=== PATIENT | female | born 2000 | race Caucasian/White ===

== ENCOUNTER → 2021-04-17 12:18 | Outpatient (CLI) | payer MEDICAID, BC, SELFPAY ==
[2021-04-17 16:23] LABS: HIV - WCH Non-Reactive (Nonreactive); Hepatitis B Surface Antigen Non-Reactive (Nonreactive); Hepatitis C Antibody Non-Reactive (Nonreactive); Syphilis Antibodies Non-reactive
[2021-04-20 02:07] LABS: Chlamydia By Nucleic Acid AMP Positive (Negative)
[2021-04-20 07:45] LABS: Gonococcus By Nucleic Acid AMP Negative (Negative)
== END ==
PROVIDERS: PCP Pediatrics; Visit Provider Obstetrics & Gynecology
DX: Z11.3 Encounter for screening for infections with a predominantly sexual mode of transmission (principal)
CPT/HCPCS: 36415; 86703; 86780; 86803; 87340; 87491; 87591

== ENCOUNTER 2021-05-13 15:38 | Outpatient (CLI) | payer BC, MEDICAID, SELFPAY ==
[2021-05-15 22:06] LABS: Chlamydia By Nucleic Acid AMP Negative (Negative)
[2021-05-16 08:24] LABS: Gonococcus By Nucleic Acid AMP Negative (Negative)
== END 2021-05-13 23:59 | disposition short-term general hospital (02) ==
LOC: LABSPEC 15:42
PROVIDERS: PCP Pediatrics; Visit Provider Obstetrics & Gynecology
DX: Z11.3 Encounter for screening for infections with a predominantly sexual mode of transmission (principal)
CPT/HCPCS: 87491; 87591

== ENCOUNTER 2021-05-20 09:46 | Emergency (ER) | payer BC, MEDICAID, SELFPAY ==
[2021-05-20 09:46] VITALS: BP 142/101; PULSE 94; RESP 18; TEMP 36.4; O2SAT 97; BMI 20.7
--- NOTE | 2021-05-20 10:15 | EDS_ITS ---
HPI HPI - Female History of Present Illness Chief Complaint: Other, Pain/Inj Narrative Narrative: 20-year-old female presenting with left inguinal pain. Apparently this has been ongoing for the last 3 days. Patient states that the pain in her left inguinal area has increased over 3 days and she now has lymph nodes palpable in the left inguinal area.Patient does state that it is painful to walk due to her lymphadenopathy She admits to dysuria as well. Patient does state that she has nausea but is not vomiting. She admits to breast tenderness. She states it is possible she could be . Last menstrual period was May 03. Patient states that on 04/17/2021 she was diagnosed with chlamydia. She had been with her current partner for a couple of months and she stated that her sexual activity with him started a month prior to the onset of her vaginal discharge. She states that her boyfriend did not have any symptoms. She states they were both tested and treated for this with azithromycin. He still does not have any symptoms. She states she is not concerned that he is having sex with other partners. She is still having unprotected sex with him. She has not had no return of vaginal discharge. She does admit to pelvic cramping. Patient denies any fever, chills, body aches. She has not had any GI complaints other than nausea. PFSH PFSH Medical History no medical history Home Medications NK 05/20/21 [History Last Taken Unknown] naproxen [Naprosyn] 500 mg PO BID PRN #30 tab 05/20/21 [Rx Last Taken Unknown] ondansetron 4 mg PO Q8H PRN PRN #14 tab 05/20/21 [Rx Last Taken Unknown] Allergy/AdvReac Type Severity Reaction Status Date / Time No Known Allergies Allergy Verified 05/20/21 09:48 Surgical History no surgical history Social History Smoking Status: Never smoker ROS ROS ED Constitutional Constitutional ED: Denies chills or fever(s) Eyes Eyes: Denies blurry vision or diplopia ENT ENT ED: Denies rhinorrhea or sore throat Cardiovascular Cardiovascular: Denies chest pain or palpitations Respiratory/Chest Respiratory/Chest: Reports breast pain; Denies cough or dyspnea Gastrointestinal Gastrointestinal: Reports nausea and other Details: Pelvic cramping ; Denies constipation, diarrhea or vomiting Genitourinary Genitourinary ED: Reports dysuria and other Details: No vaginal discharge, rash, lesions ; Denies hematuria Musculoskeletal Musculoskeletal: Denies arthralgias or myalgias Integumentary Denies Abrasions or rash Neurologic Neurologic: Denies headache(s) or paresthesias Hematologic/Lymphatic Hematologic/Lymphatic: Reports other Details: Left inguinal lymphadenopathy EXAM Physical Exam Const Vital Signs: 05/20/21 09:46 05/20/21 09:52 05/20/21 12:28 Temperature 97.6 F L Temperature Source Temporal Pulse Rate 94 77 Respiratory Rate 18 16 Respiratory Effort Normal Non-Labored Blood Pressure 142/101 H 127/76 H Blood Pressure Mean 114 93 Pulse Ox 97 99 Oxygen Delivery Method Room Air Room Air 05/20/21 13:47 Temperature Temperature Source Pulse Rate 84 Respiratory Rate 16 Respiratory Effort Blood Pressure 135/89 H Blood Pressure Mean 104 Pulse Ox 100 Oxygen Delivery Method Room Air Positive well nourished General Appearance ED: NAD HEENT Reports moist mucous membranes Negative for trauma Eyes PERRL and EOMs intact bilaterally General Eye ED: Negative for pale conjunctiva or scleral icterus Neck no lymphadenopathy and supple Chest Wall inspection of chest normal Resp normal respiratory effort and clear to auscultation bilaterally Cardio regular rate and regular rhythm GI Palpation: soft and tender other (Pelvic/suprapubic) external exam normal External Female Exam: inguinal lymphadenopathy Back/Spine no CVA tenderness Neuro oriented x3 and CN's II-XII intact bilaterally Sensorium / Orientation: alert Psych mental status grossly normal Skin no rashes or lesions noted and no wounds MDM MDM MDM Narrative Medical decision making narrative: Patient presenting with pelvic pain lymphadenopathy in the left inguinal region. This is palpable and is tender to palpation there is no rashes or lesions in this area. Patient is not having any vaginal complaints. She does complain of dysuria. hCG is negative. Urinalysis showed some calcium oxalate crystals and small amount of blood in urine. I did a plain blood work and her CBC CMP are unremarkable. GC and Chlamydia were negative. At this point I went to speak with the patient at this wound she told me that she has a history of kidney stones. I obtained a CT of the abdomen pelvis without contrast which did not identify any kidney stones but did show a complex 5 x 4.7 cm cyst on the left ovary and recommended ultrasound. This was performed and the ultrasound read of this is 3.9 x 3.9 x 3.1 complex ovarian cyst without torsion. Good flow was noted. Patient given a dose of Toradol for pain. She will be discharged home with Naprosyn. She has follow-up with Dr. 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 Patient can return precautions. Impression: 1. Left inguinal lymphadenopathy 2. Left-sided ovarian cyst 3. Nausea Lab Data Labs: Laboratory Results - last 24 hr 05/20/21 05/20/21 05/20/21 10:15 10:15 10:15 WBC 6.8 RBC 4.39 Hgb 12.6 Hct 38.7 MCV 88.2 MCH 28.7 MCHC 32.6 RDW Std Deviation 42.3 RDW Coeff of Martin 13.0 Plt Count 233 MPV 10.9 Immature Gran % (Auto) 0.300 Neut % (Auto) 62.9 Lymph % (Auto) 20.8 [place] % (Auto) 11.7 H Eos % (Auto) 3.7 Baso % (Auto) 0.6 Absolute Neuts (auto) 4.3 Absolute Lymphs (auto) 1.41 Nucleated RBC % 0 Sodium 140 Potassium 3.3 L Chloride 105 Carbon Dioxide 29.0 Anion Gap 6 BUN 12 Creatinine 0.81 Estim Creat Clear Calc 99.16 Est GFR (MDRD) Af Amer 115 Est GFR (MDRD) Non-Af 95 BUN/Creatinine Ratio 14.8 Glucose 91 Calcium 8.8 Total Bilirubin 0.40 AST 14 L ALT 26 Alkaline Phosphatase 86 Total Protein 7.7 Albumin 3.7 Globulin 4.0 Albumin/Globulin Ratio 0.9 Serum , Qual NEGATIVE Urine Color Urine Clarity Urine pH Ur Specific [place] Urine Protein Urine Glucose (UA) Urine Ketones Urine Occult Blood Urine Nitrite Urine Bilirubin Urine Urobilinogen Ur Leukocyte Esterase Urine RBC Urine WBC Ur Squamous Epith Cells Calcium Oxalate Crystal Urine Bacteria Urine Mucus Urine Test Chlam trachomat DNA PCR N.gonorrhoeae DNA (PCR) 05/20/21 05/20/21 05/20/21 10:15 10:22 10:22 WBC RBC Hgb Hct MCV MCH MCHC RDW Std Deviation RDW Coeff of Martin Plt Count MPV Immature Gran % (Auto) Neut % (Auto) Lymph % (Auto) [place] % (Auto) Eos % (Auto) Baso % (Auto) Absolute Neuts (auto) Absolute Lymphs (auto) Nucleated RBC % Sodium Potassium Chloride Carbon Dioxide Anion Gap BUN Creatinine Estim Creat Clear Calc Est GFR (MDRD) Af Amer Est GFR (MDRD) Non-Af BUN/Creatinine Ratio Glucose Calcium Total Bilirubin AST ALT Alkaline Phosphatase Total Protein Albumin Globulin Albumin/Globulin Ratio Serum , Qual Urine Color Yellow Urine Clarity Sl. Cloudy Urine pH 5.0 Ur Specific [place] 1.025 Urine Protein 15 H Urine Glucose (UA) Normal Urine Ketones 5 H Urine Occult Blood 10 H Urine Nitrite Negative Urine Bilirubin Negative Urine Urobilinogen Normal Ur Leukocyte Esterase 500 H Urine RBC 0 SEEN Urine WBC 5-10 SEEN Ur Squamous Epith Cells 0-5 SEEN Calcium Oxalate Crystal 1+ Urine Bacteria 0 SEEN Urine Mucus 0 SEEN Urine Test Negative Chlam trachomat DNA PCR Negative N.gonorrhoeae DNA (PCR) Negative Radiography Diagnostic Testing: Clinical Impression(s) from Imaging Studies Abdomen/Pelvis CT 05/20/21 13:45 IMPRESSION: 5 cm x 4.7 cm complex solid and cystic mass in the left adnexa. Small amount of fluid is seen in the pelvis. Correlation with ultrasound is recommended. Electronically Signed: Roby Dial MD at 14:05 EST , Service support , Transvaginal US 05/20/21 14:15 IMPRESSION: 3.8 cm x 3.9 cm x 3.1 cm complex left ovarian cyst. Follow-up is recommended. Free fluid in the pelvis. No evidence of ovarian torsion. Electronically Signed: Roby Dial MD at 15:18 EST , Service support , Discharge Plan Triage Chief Complaint: Other, Pain/Inj ED Provider: Spencer Cardozo Dx/Rx/DC Orders Prescriptions: New naproxen [Naprosyn] 500 mg tablet 500 mg PO BID PRN (Reason: pain) Qty: 30 RF: 0 ondansetron 4 mg tablet,disintegrating 4 mg PO Q8H PRN PRN (Reason: Nausea) Qty: 14 RF: 0 No Action NK RF: 0 Primary Care Provider: Adarsh Gonzalez Referrals: Adarsh Gonzalez DO [Primary Care Provider] - Carlos Cochran MD [STAFF PHYSICIAN] - As soon as possible Disposition Disposition: Home, Self Care
[2021-05-20 10:32] LABS: Absolute Lymphocyte Count 1.41 X10^3/uL (0.83-4.51); Absolute Neutrophil Count 4.3 X10^3/uL (2.0-7.7); Basophil# 0.04 X10^3/uL; Basophil% 0.6 % (0-1); Eosinophil# 0.25 X10^3/uL; Eosinophils% 3.7 % (0-5); Hematocrit 38.7 % (37-47); Hemoglobin 12.6 g/dL (12.0-15.0); Lymphocyte # 1.41 X10^3/ul (0.83-4.51); Lymphocyte % 20.8 % (19-41); Mean Corp Hgb Conc 32.6 g/dL (32-36); Mean Corpuscular Hgb 28.7 pg (27.0-32.0); Mean Corpuscular Volume 88.2 fL (81-99); Mean Platelet Vol. 10.9 fl (6.2-12.0); Monocyte# 0.79 X10^3/uL; Monocyte% 11.7 % (0-10); NRBC Flagged by Analyzer 0 % (0-5); Neutrophil # 4.27 X10^3/uL (2.7-7.7); Neutrophil % 62.9 % (47-70); Platelet Count 233 K/mm3 (150-450); RBC Distribution Width SD 42.3 fl (35.1-43.9); Red Blood Count 4.39 M/mm3 (4.2-5.4); White Blood Count 6.8 K/mm3 (4.4-11.0)
[2021-05-20 10:42] LABS: Internal QC Validated? YES +Cl - CLEAR BKGD
[2021-05-20 10:43] LABS: Pregnancy, Urine Negative Negative
[2021-05-20 10:50] LABS: ALB/GLOB Ratio 0.9 RATIO (0.9-2.4); AST(SGOT) 14 U/L (15-37); Alanine Aminotransfer ALT/SGPT 26 U/L (13-56); Albumin, Serum 3.7 g/dL (3.2-5.0); Alkaline Phosphatase 86 U/L (45-117); Anion Gap 6 (5-15); BUN 12 mg/dL (7-18); BUN/Creat Ratio 14.8 RATIO (10-20); Calcium,Total 8.8 mg/dL (8.5-10.1); Chloride 105 mmol/L (98-107); Creatinine, Serum 0.81 mg/dL (0.55-1.02); EST Glomerular Filtration Rate 95 mL/min (>60); Est Glom Filt Rate - Afr Amer 115 mL/min (>60); Estimated Creatinine Clearance 99.16 ml/min; Glucose 91 mg/dL (74-106); Potassium 3.3 mmol/L (3.5-5.1); Protein, Total 7.7 g/dL (6.4-8.2); Sodium Level 140 mmol/L (136-145)
[2021-05-20 10:59] LABS: Internal QC Validated? YES +Cl - CLEAR BKGD; Pregnancy, Serum, hCG Quali. NEGATIVE Negative
[2021-05-20 12:02] LABS: Bacteria 0 SEEN /hpf (None Seen); Mucous, Urine 0 SEEN /hpf (<or=2+); Red Blood Cells-Urine 0 SEEN /hpf (0-5)
[2021-05-20 12:05] LABS: Color, Urine Yellow (Yellow); Glucose, Dipstick Normal (Normal); Ketone-Dipstick 5 mg/dl (Negative); Leukocyte Esterase-Dipstick 500 /ul (Negative); Nitrite-Dipstick Negative (Negative); Occult Blood-Urine 10 /ul (Negative); Protein-Dipstick 15 mg/dl (Negative); Specific Gravity, Urine 1.025 (1.002-1.030); Urine Bilirubin Dipstick Negative (Negative); Urine Clarity Sl. Cloudy (Clear); Urine Urobilinogen Normal (Normal)
[2021-05-20 12:28] VITALS: BP 127/76; PULSE 77; RESP 16; O2SAT 99
[2021-05-20 12:40] LABS: Chlamydia Trachomatis by PCR Negative (Negative); Neisserai gonorrhoeae by PCR Negative (Negative); Probe Check PASS; Sample Adequacy Control PASS; Specimen Processing Control PASS
[2021-05-20 12:57] LABS: Calcium Oxalate Crystals Ur 1+ /hpf (<or=2+); Squamous Epithelial Cells - UA 0-5 SEEN /hpf (5-10); White Blood Cells 5-10 SEEN /hpf (0-5)
--- NOTE | 2021-05-20 13:45 | CT_ITS ---
STUDY: CT ABDOMEN AND PELVIS WITH CONTRAST REASON FOR EXAM: Female, 20 years old. Left flank pain RADIATION DOSAGE (If Supplied By Facility): CTDIvol = ( 10.54 ) mGy, DLP = ( 330.61 ) mGycm TECHNIQUE: Transaxial images were obtained from the dome of the diaphragm to the symphysis pubis without oral contrast. IV 100mL Isovue-300 was administered. Sagittal and coronal images were reconstructed. Individualized dose optimization techniques were used for this CT. COMPARISON: None. FINDINGS: The visualized lung bases are unremarkable. The visualized portions of the heart are within normal limits. Normal liver. Normal gallbladder and extrahepatic biliary system. Normal spleen. Normal pancreas. Normal bilateral adrenal glands. Normal right kidney. Normal left kidney. Normal visualized stomach. Normal small intestine. Normal colon. The appendix is visualized and appears normal. Normal abdominal aorta. Normal inferior vena cava. Normal retroperitoneum. Normal urinary bladder. There is a 5 cm x 4.7 cm complex cystic mass in the left adnexa. Small amount of free fluid is seen in the pelvis. Follicles are seen in the right ovary. Normal abdominal wall. Normal osseous structures. CT/Abdomen/Pelvis W IV Cont ONLY IMPRESSION: 5 cm x 4.7 cm complex solid and cystic mass in the left adnexa. Small amount of fluid is seen in the pelvis. Correlation with ultrasound is recommended. Electronically Signed: Roby Dial MD at 14:05 EST , Service support ,
[2021-05-20 13:47] VITALS: BP 135/89; PULSE 84; RESP 16; O2SAT 100
--- NOTE | 2021-05-20 14:15 | US_ITS ---
STUDY: ULTRASOUND OF THE FEMALE PELVIS - COMPLETE REASON FOR EXAM: Female, 20 years old. Pelvic pain LMP: 04/29/2021 TECHNIQUE: Transvaginal TECHNICAL QUALITY: Adequate. COMPARISON: Comparison is made with prior CT scan of the abdomen and pelvis done earlier today. FINDINGS: The uterus is anteverted and is in a midline position. The uterus measures 8 cm x 4.4 cm x 3.5 cm. Normal uterine cervix. The endometrium measures 8.2 mm in thickness, and is hyperechoic. There is no demonstrated endometrial mass. There is no demonstrated myometrial mass. I.U.D. - The patient does not have an I.U.D. The right ovary is visualized. The right ovary measures 3.1 cm x 3.1 cm x 1.7 cm. There is no right ovarian cyst or ovarian mass. There is no visualized right adnexal mass or complex lesion. There is normal arterial and normal venous vascularity. The left ovary is visualized. The left ovary measures 4.7 cm x 4.3 cm x 4 cm. There is a 3.8 cm x 3.9 cm x 3.1 cm complex cyst in the left ovary. There is no visualized left adnexal mass or complex lesion. There is normal arterial and normal venous vascularity. Small amount of free fluid is seen in the pelvis. US/Transvaginal Non- IMPRESSION: 3.8 cm x 3.9 cm x 3.1 cm complex left ovarian cyst. Follow-up is recommended. Free fluid in the pelvis. No evidence of ovarian torsion. Electronically Signed: Roby Dial MD at 15:18 EST , Service support ,
[2021-05-20] MEDS: Ketorolac 15 MG/ML Vial IV (15:41)
[2021-05-20 15:45] VITALS: BP 125/80; PULSE 70; RESP 16; TEMP 36.8; O2SAT 99
== END 2021-05-20 15:47 | disposition home or self-care (01) ==
PROVIDERS: Emergency Provider Student in an Organized Health Care Education/Training Program; PCP Pediatrics; Visit Provider Student in an Organized Health Care Education/Training Program
DX: R59.0 Localized enlarged lymph nodes (principal); N83.202 Unspecified ovarian cyst, left side; R11.0 Nausea; R31.9 Hematuria, unspecified
CPT/HCPCS: 74177; 76830; 80053; 81001; 81025; 84703; 85025; 87491; 87591; 93976; 96374; 99283; Q9967; A4216

== ENCOUNTER → 2021-09-23 | Outpatient (CLI) | payer BC, MEDICAID, SELFPAY ==
[2021-09-25 21:08] LABS: Chlamydia By Nucleic Acid AMP Negative (Negative)
[2021-09-25 21:44] LABS: Gonococcus By Nucleic Acid AMP Negative (Negative)
== END | disposition home or self-care (01) ==
LOC: LABSPEC 14:15
PROVIDERS: PCP Pediatrics; Visit Provider Obstetrics & Gynecology
DX: Z11.3 Encounter for screening for infections with a predominantly sexual mode of transmission (principal)
CPT/HCPCS: 87491; 87591

== ENCOUNTER → 2021-10-07 | Outpatient (CLI) | payer BC, MEDICAID, SELFPAY ==
[2021-10-07 13:41] LABS: Basophil# 0.04 X10^3/uL; Basophil% 0.4 % (0-1); Eosinophil# 0.15 X10^3/uL; Eosinophils% 1.5 % (0-5); Hematocrit 36.5 % (37-47); Hemoglobin 11.8 g/dL (12.0-15.0); Lymphocyte % 22.4 % (19-41); Mean Corp Hgb Conc 32.3 g/dL (32-36); Mean Corpuscular Hgb 28.1 pg (27.0-32.0); Mean Corpuscular Volume 86.9 fL (81-99); Mean Platelet Vol. 11.7 fl (6.2-12.0); Monocyte# 0.73 X10^3/uL; Monocyte% 7.1 % (0-10); NRBC Flagged by Analyzer 0 % (0-5); Neutrophil # 7.02 X10^3/uL (2.7-7.7); Neutrophil % 68.2 % (47-70); Platelet Count 301 K/mm3 (150-450); RBC Distribution Width CV 14.1 % (11.6-14.6); RBC Distribution Width SD 44.7 fl (35.1-43.9); White Blood Count 10.3 K/mm3 (4.4-11.0)
[2021-10-08 09:33] LABS: HIV - WCH Non-Reactive (Nonreactive); Hepatitis B Surface Antigen Non-Reactive (Nonreactive); Hepatitis C Antibody Non-Reactive (Nonreactive); Rubella IgG Non-Reactive (Nonreactive); Syphilis Antibodies Non-reactive
[2021-10-14 11:26] LABS: Chlamydia By Nucleic Acid AMP Positive (Negative)
[2021-10-14 18:06] LABS: Gonococcus By Nucleic Acid AMP Negative (Negative)
== END | disposition home or self-care (01) ==
LOC: WOBLAB 11:20
PROVIDERS: PCP Pediatrics; Visit Provider Obstetrics & Gynecology
DX: Z34.81 Encounter for supervision of other normal pregnancy, first trimester (principal)
CPT/HCPCS: 36415; 85025; 86703; 86762; 86780; 86803; 87077; 87086; 87088; 87186; 87340; 87491; 87591

== ENCOUNTER → 2021-10-24 | Outpatient (CLI) | payer BC, MEDICAID, SELFPAY | END | disposition home or self-care (01) | LOC: LABSPEC 11:36 | PROVIDERS: PCP Pediatrics; Visit Provider Obstetrics & Gynecology | DX: R30.0 Dysuria (principal) | CPT/HCPCS: 87086; 87088 ==

== ENCOUNTER → 2021-11-15 | Outpatient (CLI) | payer BC, MEDICAID, SELFPAY ==
[2021-11-18 20:07] LABS: Chlamydia By Nucleic Acid AMP Negative (Negative)
[2021-11-19 13:52] LABS: Gonococcus By Nucleic Acid AMP Negative (Negative)
== END | disposition home or self-care (01) ==
LOC: LABSPEC 08:45
PROVIDERS: PCP Pediatrics; Visit Provider Obstetrics & Gynecology
DX: A74.9 Chlamydial infection, unspecified (principal)
CPT/HCPCS: 87491; 87591

== ENCOUNTER 2022-01-30 17:25 | Outpatient (CLI) | payer BC, MEDICAID, SELFPAY ==
[2022-01-30 17:35] VITALS: BP 122/70; PULSE 93; PULSE 96; TEMP 36.9; O2SAT 100
[2022-01-30 17:48] VITALS: BMI 22.3
--- NOTE | 2022-01-30 18:17 | OB.TRI.HP_ITS ---
HPI - General General Date of Admission: 01/30/22 HPI Narrative CHELSIE ORTEGA, is a 21 F who presents with vaginal bleeding at home [facility] Medical History no medical history Home Medications [id number] 1 mg tablet 1 tab PO DAILY 01/30/22 [History Last Taken 01/27/22 08:00] Allergy/AdvReac Type Severity Reaction Status Date / Time No Known Allergies Allergy Verified 01/30/22 17:50 Surgical History no surgical history Social History Smoking Status: Never smoker Physical Exam Const alert, oriented x3, no apparent distress, average body habitus, no limitations and healthy appearing HEENT normocephalic Head and Scalp: atraumatic Eyes PERRL Neck full ROM Resp normal respiratory effort and normal air movement GI GI Narrative: Soft, nontender, gravid. Bedside ultrasound with placenta fundal, JASON subjectively within normal limits, no pathology noted. Extremity normal to inspection and full ROM Neuro oriented x3 and moves all extremities Psych mental status grossly normal, thought process normal, cooperative and affect normal Assessment & Plan (1) : PLAN: Patient seen and examined. Cervical exam by nursing closed thick and high. No signs of bleeding while in triage. heart tones reassuring. Abdomen soft. Bedside ultrasound reassuring. Okay to discharge home, precautions given. To follow-up in office
--- NOTE | 2022-01-30 18:18 | NURSING ---
Bedside ultrasound complete by Jos Cochran. BHAKTI. Miriam to d/c.
[2022-01-30 20:07] LABS: Chlamydia Trachomatis by PCR Negative (Negative); Neisserai gonorrhoeae by PCR Negative (Negative); Probe Check PASS; Sample Adequacy Control PASS; Specimen Processing Control PASS
== END 2022-01-30 18:29 | disposition home or self-care (01) ==
LOC: WPOUT 17:28 → WP 17:29
PROVIDERS: PCP Pediatrics; Referring Provider Obstetrics & Gynecology; Visit Provider Obstetrics & Gynecology
DX: O46.90 Antepartum hemorrhage, unspecified, unspecified trimester (principal)
CPT/HCPCS: 59050; 76815; 87086; 87088; 87491; 87591; 99218; G0378

== ENCOUNTER → 2022-03-14 | Outpatient (CLI) | payer MEDICAID, SELFPAY ==
[2022-03-14 11:42] LABS: Absolute Lymphocyte Count 1.56 X10^3/uL (0.83-4.51); Absolute Neutrophil Count 9.2 X10^3/uL (2.0-7.7); Basophil# 0.04 X10^3/uL; Basophil% 0.3 % (0-1); Eosinophil# 0.06 X10^3/uL; Eosinophils% 0.5 % (0-5); Hematocrit 32.9 % (37-47); Hemoglobin 10.8 g/dL (12.0-15.0); Lymphocyte # 1.56 X10^3/ul (0.83-4.51); Lymphocyte % 13.3 % (19-41); Mean Corp Hgb Conc 32.8 g/dL (32-36); Mean Corpuscular Hgb 29.6 pg (27.0-32.0); Mean Corpuscular Volume 90.1 fL (81-99); Monocyte# 0.75 X10^3/uL; Monocyte% 6.4 % (0-10); NRBC Flagged by Analyzer 0 % (0-5); Neutrophil # 9.23 X10^3/uL (2.7-7.7); Neutrophil % 78.9 % (47-70); Platelet Count 207 K/mm3 (150-450); RBC Distribution Width SD 42.6 fl (35.1-43.9); Red Blood Count 3.65 M/mm3 (4.2-5.4); White Blood Count 11.7 K/mm3 (4.4-11.0)
[2022-03-14 12:12] LABS: Glucose Challenge Gest 1H 50g 94 mg/dL (70-140)
== END | disposition home or self-care (01) ==
LOC: WOBLAB 11:07
PROVIDERS: PCP Pediatrics; Visit Provider Obstetrics & Gynecology
DX: Z34.82 Encounter for supervision of other normal pregnancy, second trimester (principal)
CPT/HCPCS: 36415; 82950; 85025; 86850

== ENCOUNTER → 2022-04-23 | Outpatient (CLI) | payer MEDICAID, SELFPAY ==
[2022-04-23 14:56] LABS: Absolute Lymphocyte Count 1.89 X10^3/uL (0.83-4.51); Basophil# 0.04 X10^3/uL; Basophil% 0.4 % (0-1); Eosinophil# 0.05 X10^3/uL; Eosinophils% 0.5 % (0-5); Hematocrit 30.9 % (37-47); Hemoglobin 10.2 g/dL (12.0-15.0); Lymphocyte # 1.89 X10^3/ul (0.83-4.51); Lymphocyte % 17.9 % (19-41); Mean Corpuscular Volume 87.8 fL (81-99); Mean Platelet Vol. 13.9 fl (6.2-12.0); Monocyte% 4.7 % (0-10); NRBC Flagged by Analyzer 0 % (0-5); Neutrophil # 7.98 X10^3/uL (2.7-7.7); Neutrophil % 75.8 % (47-70); Platelet Count 166 K/mm3 (150-450); RBC Distribution Width CV 12.8 % (11.6-14.6); RBC Distribution Width SD 40.5 fl (35.1-43.9); Red Blood Count 3.52 M/mm3 (4.2-5.4); White Blood Count 10.5 K/mm3 (4.4-11.0)
[2022-04-23 15:28] LABS: Protein, Urine (Random) 20.8 mg/dL (<11.9); Protein:Creat Ratio 131 mg/g CRE (0-200)
[2022-04-23 15:29] LABS: ALB/GLOB Ratio 0.7 RATIO (0.9-2.4); AST(SGOT) 49 U/L (15-37); Alanine Aminotransfer ALT/SGPT 65 U/L (13-56); Albumin, Serum 2.7 g/dL (3.2-5.0); Alkaline Phosphatase 204 U/L (45-117); Anion Gap 5 (5-15); BUN 8 mg/dL (7-18); BUN/Creat Ratio 12.4 RATIO (10-20); Calcium,Total 8.6 mg/dL (8.5-10.1); Chloride 104 mmol/L (98-107); Creatinine, Serum 0.64 mg/dL (0.55-1.02); EST Glomerular Filtration Rate 123 mL/min (>60); Est Glom Filt Rate - Afr Amer 149 mL/min (>60); Globulin 3.9 g/dL (2.2-4.2); Glucose 99 mg/dL (74-106); LDH 148 U/L (84-246); Potassium 3.6 mmol/L (3.5-5.1); Protein, Total 6.6 g/dL (6.4-8.2); Sodium Level 137 mmol/L (136-145)
== END | disposition home or self-care (01) ==
LOC: WOBLAB 14:07
PROVIDERS: PCP Pediatrics; Visit Provider Obstetrics & Gynecology
DX: O13.3 Gestational [pregnancy-induced] hypertension without significant proteinuria, third trimester (principal); Z3A.00 Weeks of gestation of pregnancy not specified
CPT/HCPCS: 36415; 80053; 82570; 83615; 84156; 85025; 87086; 87088

== ENCOUNTER → 2022-04-30 | Outpatient (CLI) | payer MEDICAID, SELFPAY ==
[2022-04-30 11:58] LABS: Absolute Lymphocyte Count 1.92 X10^3/uL (0.83-4.51); Absolute Neutrophil Count 8.1 X10^3/uL (2.0-7.7); Basophil# 0.05 X10^3/uL; Basophil% 0.5 % (0-1); Eosinophil# 0.06 X10^3/uL; Eosinophils% 0.6 % (0-5); Hematocrit 31.4 % (37-47); Hemoglobin 10.6 g/dL (12.0-15.0); Lymphocyte # 1.92 X10^3/ul (0.83-4.51); Lymphocyte % 17.7 % (19-41); Mean Corp Hgb Conc 33.8 g/dL (32-36); Mean Corpuscular Hgb 29.8 pg (27.0-32.0); Mean Corpuscular Volume 88.2 fL (81-99); Mean Platelet Vol. 13.5 fl (6.2-12.0); Monocyte# 0.61 X10^3/uL; Monocyte% 5.6 % (0-10); NRBC Flagged by Analyzer 0 % (0-5); Neutrophil # 8.14 X10^3/uL (2.7-7.7); Neutrophil % 75.2 % (47-70); POSITIVE MORPHOLOGY YES; Platelet Count 176 K/mm3 (150-450); RBC Distribution Width CV 12.7 % (11.6-14.6); RBC Distribution Width SD 40.8 fl (35.1-43.9); Red Blood Count 3.56 M/mm3 (4.2-5.4); White Blood Count 10.8 K/mm3 (4.4-11.0)
[2022-04-30 12:03] LABS: Protein:Creat Ratio 113 mg/g CRE (0-200)
[2022-04-30 12:24] LABS: ALB/GLOB Ratio 0.6 RATIO (0.9-2.4); AST(SGOT) 38 U/L (15-37); Alanine Aminotransfer ALT/SGPT 58 U/L (13-56); Albumin, Serum 2.7 g/dL (3.2-5.0); Alkaline Phosphatase 231 U/L (45-117); Anion Gap 8 (5-15); BUN 8 mg/dL (7-18); Chloride 105 mmol/L (98-107); Creatinine, Serum 0.66 mg/dL (0.55-1.02); EST Glomerular Filtration Rate 119 mL/min (>60); Est Glom Filt Rate - Afr Amer 144 mL/min (>60); Globulin 4.2 g/dL (2.2-4.2); Glucose 84 mg/dL (74-106); LDH 158 U/L (84-246); Potassium 3.9 mmol/L (3.5-5.1); Protein, Total 6.9 g/dL (6.4-8.2); Sodium Level 138 mmol/L (136-145)
[2022-04-30 12:28] LABS: Differential Indicated SCAN CRITERIA MET
[2022-04-30 12:31] LABS: Differential Comment SCANNED
[2022-04-30 12:32] LABS: Platelet Estimate ADEQUATE (ADEQ)
[2022-04-30 12:33] LABS: Reactive Lymphocyte 1+
== END | disposition home or self-care (01) ==
LOC: WOBLAB 11:43
PROVIDERS: PCP Pediatrics; Visit Provider Obstetrics & Gynecology
DX: Z34.83 Encounter for supervision of other normal pregnancy, third trimester (principal)
CPT/HCPCS: 36415; 80053; 82570; 83615; 84156; 85025; 87086; 87088

== ENCOUNTER → 2022-05-06 | Outpatient (CLI) | payer MEDICAID, SELFPAY ==
[2022-05-06 13:17] LABS: Hematocrit 33.3 % (37-47); Hemoglobin 10.5 g/dL (12.0-15.0); Mean Corp Hgb Conc 31.5 g/dL (32-36); Mean Corpuscular Volume 88.8 fL (81-99); Mean Platelet Vol. 14.6 fl (6.2-12.0); Platelet Count 162 K/mm3 (150-450); RBC Distribution Width CV 12.8 % (11.6-14.6); RBC Distribution Width SD 41.5 fl (35.1-43.9); Red Blood Count 3.75 M/mm3 (4.2-5.4); White Blood Count 12.1 K/mm3 (4.4-11.0)
[2022-05-06 13:42] LABS: ALB/GLOB Ratio 0.7 RATIO (0.9-2.4); AST(SGOT) 26 U/L (15-37); Alanine Aminotransfer ALT/SGPT 38 U/L (13-56); Albumin, Serum 2.8 g/dL (3.2-5.0); Alkaline Phosphatase 247 U/L (45-117); Anion Gap 7 (5-15); BUN 10 mg/dL (7-18); BUN/Creat Ratio 14.1 RATIO (10-20); Calcium,Total 8.7 mg/dL (8.5-10.1); Chloride 105 mmol/L (98-107); Creatinine, Serum 0.71 mg/dL (0.55-1.02); EST Glomerular Filtration Rate 111 mL/min (>60); Est Glom Filt Rate - Afr Amer 134 mL/min (>60); Globulin 4.3 g/dL (2.2-4.2); Glucose 79 mg/dL (74-106); LDH 170 U/L (84-246); Potassium 3.7 mmol/L (3.5-5.1); Protein, Total 7.1 g/dL (6.4-8.2); Sodium Level 137 mmol/L (136-145)
[2022-05-06 14:01] LABS: Syphilis Antibodies Non-reactive
== END | disposition home or self-care (01) ==
LOC: WOBLAB 12:08
PROVIDERS: PCP Pediatrics; Visit Provider Obstetrics & Gynecology
DX: Z34.83 Encounter for supervision of other normal pregnancy, third trimester (principal); Z36.85 Encounter for antenatal screening for Streptococcus B
CPT/HCPCS: 36415; 80053; 83615; 85027; 86780; 87081

== ENCOUNTER 2022-05-10 05:14 | Inpatient (IN) | payer BC, MEDICAID, SELFPAY ==
[2022-05-10 05:27] VITALS: BMI 24.6
[2022-05-10 05:30] VITALS: BP 148/90; PULSE 88; RESP 19; TEMP 36.6; O2SAT 99
[2022-05-10] MEDS: Lactated Ringers 1,000 ML 999 ML IV (05:35)
[2022-05-10] MEDS: Acetaminophen 500 MG Tablet 1000 MG PO ×2 (05:50→23:38)
[2022-05-10 05:53] LABS: Absolute Lymphocyte Count 2.31 X10^3/uL (0.83-4.51); Absolute Neutrophil Count 8.7 X10^3/uL (2.0-7.7); Basophil# 0.04 X10^3/uL; Basophil% 0.3 % (0-1); Eosinophil# 0.16 X10^3/uL; Eosinophils% 1.3 % (0-5); Hemoglobin 10.2 g/dL (12.0-15.0); Lymphocyte # 2.31 X10^3/ul (0.83-4.51); Lymphocyte % 19.1 % (19-41); Mean Corp Hgb Conc 32.9 g/dL (32-36); Mean Corpuscular Hgb 28.7 pg (27.0-32.0); Mean Corpuscular Volume 87.1 fL (81-99); Mean Platelet Vol. 14.3 fl (6.2-12.0); Monocyte# 0.78 X10^3/uL; Monocyte% 6.4 % (0-10); NRBC Flagged by Analyzer 0 % (0-5); Neutrophil # 8.71 X10^3/uL (2.7-7.7); Neutrophil % 72.1 % (47-70); Platelet Count 153 K/mm3 (150-450); RBC Distribution Width CV 12.7 % (11.6-14.6); RBC Distribution Width SD 39.9 fl (35.1-43.9); Red Blood Count 3.56 M/mm3 (4.2-5.4); White Blood Count 12.1 K/mm3 (4.4-11.0)
[2022-05-10] MEDS: Lactated Ringers 1,000 ML 150 ML IV (06:40)
[2022-05-10 07:04] LABS: Amphetamine Urine VISTA NEGATIVE (<1000 ng/mL); Barbiturate Urine VISTA NEGATIVE (< 200 ng/mL); Benzodiazepine Urine VISTA NEGATIVE (< 200 ng/mL); Cocaine Urine VISTA NEGATIVE (< 300 ng/mL); Ecstacy Urine VISTA NEGATIVE (< 500 ng/mL); Methadone Urine VISTA NEGATIVE (< 300 ng/mL); PCP Urine VISTA NEGATIVE (< 25 ng/mL); THC Urine VISTA NEGATIVE (< 50 ng/mL); Vista UDS pH Range 5
--- NOTE | 2022-05-10 07:23 | PCM.HP.BLA ---
History and Physical Date of Admission: 05/10/22 Chief complaint: Primary section for breech History present illness: 21-year-old G2, P0 at 37 weeks and 0 days with TARUN 05/31/2022 arrives for primary section for breech with preeclampsia without severe features. Denies headache, visual change, chest pain, shortness of breath, nausea vomit, right upper quadrant pain. Patient states good movement. is complicated by preeclampsia without severe features, Rh-, GBS positive Obstetric history: G1: SAB G2: Current Past medical history: Anxiety/depression Medications: Sertraline Past surgical history: [place] teeth extraction Allergies: No known drug allergies Family history: Denies history DVT or PE Social history: Denies smoking, alcohol use, drug use Review of systems: Besides above pertinent positives a full review of systems was performed and found to be negative Physical exam: Vitals: Blood pressure 148/90 pulse 88 respiratory rate 19 temperature 97.8 ?F SPO2 99% on room air General: Normal-appearing no acute distress HEENT: Normocephalic/atraumatic no cervical adenopathy Cardiac/respiratory: No use of accessory muscles, nonlabored breathing Abdomen: Soft, nontender, gravid Extremities: No peripheral edema normal peripheral pulses Psych: Normal affect normal demeanor nonpressured speech Labs: White blood cell count 12.1 hemoglobin 12.2 hematocrit 31.0% platelets 153 urine drug screen negative. Blood type O- antibody negative Assessment plan: 21-year-old G2, P0 at 37 weeks and 0 days for primary section for breech with preeclampsia without severe features Admit labor and delivery CEFM GBS positive: Ancef with section Preeclampsia without severe features: We will continue to monitor blood pressures, patient asymptomatic. We will continue to monitor Anesthesia see
[2022-05-10] MEDS: 0.9% Saline Lock 10 ML Syringe IV (11:15)
[2022-05-10] MEDS: Dextrose 5%-Lactated Ringers 1,000 ML 100 ML IV (18:01)
[2022-05-10] MEDS: Ondansetron 4 MG/2 ML Vial IV (18:02)
--- NOTE | 2022-05-10 20:30 | PN.OBGYN_ITS ---
Subjective Subjective Comfortable resting in bed Objective Data Objective Data Vital Signs: Vital Signs Temp Pulse Resp BP Pulse Ox O2 Del Method 97.8 F 88 19 H 148/90 H 99 Room Air 05/10/22 05:30 05/10/22 05:30 05/10/22 05:30 05/10/22 05:30 05/10/22 05:30 05/10/22 05:30 Oxygen Delivery Method Room Air Weight: 152 lb 12.485 oz Body Mass Index (BMI) 24.6 Intake & Output: Intake and Output for Last 24 Hours 05/08/22 05/09/22 05/10/22 23:59 23:59 23:59 Intake Total 1000 / 1000 Balance 1000 / 1000 Lab / Micro Data Result Diagrams: 05/10/22 05:35 Labs: Laboratory Results - last 24 hr 05/10/22 05:35: WBC 12.1 H, RBC 3.56 L, Hgb 10.2 L, Hct 31.0 L, MCV 87.1, MCH 28.7, MCHC 32.9, RDW Std Deviation 39.9, RDW Coeff of Martin 12.7, Plt Count 153, MPV 14.3 H, Immature Gran % (Auto) 0.800, Neut % (Auto) 72.1 H, Lymph % (Auto) 19.1, [place] % (Auto) 6.4, Eos % (Auto) 1.3, Baso % (Auto) 0.3, Absolute Neuts (auto) 8.7 H, Absolute Lymphs (auto) 2.31, Nucleated RBC % 0 05/10/22 05:35: Blood Type O NEGATIVE, Antibody Screen TNP 05/10/22 05:35: Antibody Screen NEGATIVE 05/10/22 06:10: Urine Opiates Screen NEGATIVE, Urine Methadone Screen NEGATIVE, Ur Barbiturates Screen NEGATIVE, Ur Phencyclidine Scrn NEGATIVE, Ur Amphetamines Screen NEGATIVE, MDMA (Ecstasy) Screen NEGATIVE, U Benzodiazepines Scrn NEGATIVE, Urine Cocaine Screen NEGATIVE, U Cannabinoids Screen NEGATIVE, Ur Drug Screen Comment Physical Exam Const alert, oriented x3, no apparent distress, average body habitus, healthy appearing and well nourished HEENT normocephalic and moist oral mucous membranes Eyes PERRL Neck full ROM Resp normal respiratory effort, no retractions and no use of accessory muscles Extremity normal to inspection and full ROM Neuro moves all extremities and no focal motor deficits Psych mental status grossly normal, affect normal, speech normal and activity/motor behavior normal Assessment & Plan (1) : PLAN: Patient seen and examined. Patient's for breech with preeclampsia without severe features delayed secondary to staffing issues. Case has been rescheduled after discussing with anesthesia and surgical team for 05/11/22 at 7:30 AM. Patient okay for regular diet now, n.p.o. after midnight. Patient with a bout of nausea, given D5, continue D5 until 1 L is complete. Educated patient on medical plan and surgical plan. We will continue to monitor blood pressures overnight. Patient states understanding, all questions answered. For tomorrow
--- NOTE | 2022-05-10 20:39 | NURSING ---
Late entry: Assumed care on pt at 1600 from Cayetano HYATT. 1623: 123/84-HR 67 98.0 Temporal. RR 14. Pt stating has a ALVARADO, 5/10 frontal. Requesting Tylenol. 1738: 143/100 pt sitting up at bedside. Assisted pt to semifowlers and repeat BP 146/93. Pt stated had emesis, ALVARADO, dizzy, and feels diaphoretic. Called . Updated on BP 143/100 and repeat 146/93. Anesthesia stating the soonest they will be able to do C/S is 2199, d/t being tied up in the OR. giving orders to initiate D5LR @100/hr and give zofran IV x 1 now. 1914: Report given to OLENA Frausto charge and LuizRN assuming care.
[2022-05-10 21:22] VITALS: BP 115/64
[2022-05-10 23:40] VITALS: BP 123/77; PULSE 79
[2022-05-11] VITALS (18 sets, daily range): BP systolic 109–145; BP diastolic 65–88; PULSE 55–78; RESP 12–17; TEMP 36.1–36.7; O2SAT 95–100
[2022-05-11] MEDS: 0.9% Saline Lock 10 ML Syringe IV (04:20)
[2022-05-11] MEDS: Acetaminophen 500 MG Tablet 1000 MG PO ×3 (05:42→18:48)
[2022-05-11] MEDS: Lactated Ringers 1,000 ML 999 ML IV ×2 (05:42→22:10)
[2022-05-11] MEDS: Lactated Ringers 1,000 ML 150 ML IV (06:40)
[2022-05-11] MEDS: Sodium Citrate/Citric Acid 30 ML UDC PO (07:16)
[2022-05-11] MEDS: Cefazolin 2 GM in 0.9% Normal Saline 100 ML IV (07:30)
--- NOTE | 2022-05-11 08:21 | OP.PCM_ITS ---
Details Operative Information Date of Procedure: 05/11/22 Pre-Operative Diagnosis: Term, breech, preeclampsia without severe features Post-Operative Diagnosis: Term, breech, preeclampsia without severe features Indications Narrative: Procedure: Primary low transverse section Via Pfannenstiel incision Surgeon: Carlos Cochran MD Anesthesia: Spinal EBL: 600 cc Urine output: 200 cc IV fluids: 2000 cc Complications: None Specimen: blood gases Findings: Male infant in breech presentation Apgars 8/9. Normal uterus, tubes, and ovaries. Consent: Patient with breech presentation and preeclampsia without severe features at term, educated patient on delivery options including external cephalic version, patient declines version and elects for primary low-transverse section Via Pfannenstiel incision. Patient understands risk of the procedure include but are not limited to visceral or vascular injury, prolonged hospitalization, blood loss and need for transfusion, reoperation. Patient state understanding wish to proceed. All questions were answered and consent was signed. Procedure: Patient was brought back to the OR where spinal anesthesia was found to be adequate. 2 g of Ancef were given for infection prophylaxis. Patient was prepared and draped in a supine position with leftward tilt. A Pfannenstiel incision was made at the skin with a scalpel. The incision was carried down to the fascia with a scalpel. The fascia was excised and extended laterally. Inferior aspect of the fascia was grasped with a clamp and the underlying rectus and pyramidalis muscle were dissected off sharply with Cordova scissors. In a similar fashion the superior aspect of the fascia was grasped with a clamp and the underlying rectus muscle was dissected off sharply. Rectus muscle was dissected at the midline down to the level of the pubic symphysis. Preperitoneal fatty tissue was noted peritoneum was entered bluntly. Peritoneum was extended superiorly and inferiorly with good visualization of the bladder. Bladder blade was inserted and vesicouterine peritoneum was identified. Low transverse hysterotomy was made. Hand was placed into the incision and bladder blade was removed. Baby was delivered in standard breech fashion. Cord was clamped and cut. Baby handed off to nursing. Placenta was delivered via cord traction and fundal massage. IV oxytocin was initiated in order to facilitate uterine contractions. Uterus was exteriorized and wiped out with dry laparotomy sponge in order to remove remaining placental membranes. Uterus was closed in a continuous running fashion. Good hemostasis was noted. Uterus was placed back into the abdominal cavity and the incision was reinspected, good hemostasis was noted. Fascia was closed in a continuous running fashion with PDS suture. Puentes bcutaneous irrigation was performed and good hemostasis was noted. Skin was closed in a subcuticular fashion. Good hemostasis was noted. All counts were correct x2. Patient tolerated procedure well and was brought to recovery in stable condition.
[2022-05-11] MEDS: Oxytocin 15 Units/NS 250ml 15 UNITS/250 ML IV.SOLN 83 UNITS IV (08:40)
[2022-05-11] MEDS: Ketorolac 30 MG/ML Syringe IV ×3 (08:58→20:34)
[2022-05-11] MEDS: Lactated Ringers 1,000 ML 100 ML IV ×2 (11:53→21:47)
[2022-05-11] MEDS: Senna/Docusate Sodium 1 Tablet PO (11:54)
[2022-05-11] MEDS: Ondansetron 4 MG/2 ML Vial IV (12:30)
[2022-05-11] MEDS: proCHLORPERazine 10 MG/2 ML Vial IV (16:54)
--- NOTE | 2022-05-11 17:42 | NURSING ---
late entry per this RN due to unit census
--- NOTE | 2022-05-11 17:43 | NURSING ---
05/10/22 1920 (late entry per this RN due to unit census) Discussion with Dr. Carlos Cochran, anesthesia and OR team to postpone scheduled c/s unitl 05/11/22 at approx 0730 due to unit census; all in agreement and verbalize understanding; Dr. Cochran aware of patient recent BP, vaginal exam and contractions palpating mild, patient stating contractions feel like lucero reyes at this time and appears comfortable; Dr. Cochran states to stop continuous monitoring at this time and obtain NST in AM prior to surgery time and to assess BP every 2 hours overnight until surgery and to complete current IV infusion and in AM administer LR bolus prior to surgery time; this RN verbalized understanding.
[2022-05-11] MEDS: Enoxaparin 40 MG/0.4 ML Syringe SC (20:34)
[2022-05-11] MEDS: Sertraline 50 MG Tablet PO (20:34)
[2022-05-11] MEDS: Famotidine 200 MG/20 ML MDV 20 MG in 0.9% Normal Saline (Pres. free 8 ML 300 MG IV (22:09)
[2022-05-11 22:50] LABS: Bedside Glucose 76 mg/dL (74-106)
[2022-05-12] MEDS: Acetaminophen 500 MG Tablet 1000 MG PO ×4 (01:26→20:00)
[2022-05-12] MEDS: 0.9% Saline Lock 10 ML Syringe IV ×2 (03:16→20:01)
[2022-05-12] MEDS: Ketorolac 30 MG/ML Syringe IV (03:16)
[2022-05-12 03:23] VITALS: BP 139/88; PULSE 86; RESP 18; TEMP 36.6
[2022-05-12 06:29] LABS: Hemoglobin 8.5 g/dL (12.0-15.0); Mean Corp Hgb Conc 32.7 g/dL (32-36); Mean Corpuscular Hgb 28.8 pg (27.0-32.0); Mean Corpuscular Volume 88.1 fL (81-99); Mean Platelet Vol. 12.7 fl (6.2-12.0); Platelet Count 138 K/mm3 (150-450); RBC Distribution Width CV 13.1 % (11.6-14.6); RBC Distribution Width SD 41.3 fl (35.1-43.9); Red Blood Count 2.95 M/mm3 (4.2-5.4); White Blood Count 10.5 K/mm3 (4.4-11.0)
[2022-05-12 07:04] LABS: ALB/GLOB Ratio 0.5 RATIO (0.9-2.4); AST(SGOT) 28 U/L (15-37); Alanine Aminotransfer ALT/SGPT 29 U/L (13-56); Albumin, Serum 1.9 g/dL (3.2-5.0); Alkaline Phosphatase 187 U/L (45-117); Anion Gap 8 (5-15); BUN 7 mg/dL (7-18); Calcium,Total 8.3 mg/dL (8.5-10.1); Chloride 104 mmol/L (98-107); Creatinine, Serum 0.64 mg/dL (0.55-1.02); EST Glomerular Filtration Rate 124 mL/min (>60); Est Glom Filt Rate - Afr Amer 150 mL/min (>60); Estimated Creatinine Clearance 130.17 ml/min; Globulin 3.6 g/dL (2.2-4.2); Glucose 80 mg/dL (74-106); LDH 209 U/L (84-246); Potassium 3.9 mmol/L (3.5-5.1); Protein, Total 5.5 g/dL (6.4-8.2); Sodium Level 136 mmol/L (136-145)
[2022-05-12 08:00] VITALS: BP 130/88; PULSE 75; RESP 16; TEMP 36.6; O2SAT 100
--- NOTE | 2022-05-12 10:30 | DCINST_ITS ---
Discharge Instructions Diet Discharge Diet: No restrictions Activity Discharge Activity: Return to Normal Activity, May Drive, May Shower and - (No tub baths for 2 weeks) May resume sexual activity in: 4-6 weeks Lifting Restrictions: No lifting over 25 pounds for 2 to 3 weeks Dressing / Incision Call your doctor if your incision/area has: Continuous Slow Oozing and Foul Smelling Discharge Call your doctor if you observe: Fever of 101 or Higher, Shortness of breath and Chest pain Follow Up Care Please Follow Up With: Carlos Cochran MD When: 1 week blood pressure check Test Results: Test results from this visit will be discussed in further detail at your follow- up appointment, if applicable. Discharge Plan Admission Admit Date/Time: 05/10/22 05:14 Primary Reason for Your Visit: Primary section Attending Provider: Carlos Cochran Primary Care Provider: Adarsh Gonzalez Instructions Additional Instructions / Restrictions: Regular diet. Okay to shower. No tub baths for 2 weeks. No lifting over 25 pounds for 2 to 3 weeks. No intercourse for 4 to 6 weeks. Call if headaches, vision changes, chest pain, shortness of breath. Follow-up 1 week blood pressure check, 2 weeks postoperatively Discharge Orders/Prescriptions Prescriptions: New oxycodone 5 mg tablet 5 mg PO Q6H PRN (Reason: pain (scale score 7-10)) 4 Days Qty: 16 0RF Continued [id number] 1 mg Tablet 1 tab PO DAILY sertraline [Zoloft] 50 mg Tablet 50 mg PO DAILY Referrals / Follow Up: Adarsh Gonzalez DO [Primary Care Provider] -
--- NOTE | 2022-05-12 10:32 | PCM.DC.BLA ---
Discharge Summary Date of Admission: 05/10/22 Date of Discharge: 05/12/22 Summary: Patient arrived on 05/10/2022 for primary section for breech with preeclampsia without severe features, but with staff shortage patient was delayed until 05/11/2022. On 05/11/2022 primary section performed at 37 weeks. Nausea vomiting with postoperative recovery. Blood pressures remained stable on no medications. Labs stable. Patient discharged home on 05/12/2022 Meaningful Use Info Meaningful Use Diagnoses (Choose all that apply): None applicable Discharge Plan Admission Admit Date/Time: 05/10/22 05:14 Primary Reason for Your Visit: Primary section Attending Provider: Carlos Cochran Primary Care Provider: Adarsh Gonzalez Instructions Additional Instructions / Restrictions: Regular diet. Okay to shower. No tub baths for 2 weeks. No lifting over 25 pounds for 2 to 3 weeks. No intercourse for 4 to 6 weeks. Call if headaches, vision changes, chest pain, shortness of breath. Follow-up 1 week blood pressure check, 2 weeks postoperatively Discharge Orders/Prescriptions Prescriptions: New oxycodone 5 mg tablet 5 mg PO Q6H PRN (Reason: pain (scale score 7-10)) 4 Days Qty: 16 0RF Continued [id number] 1 mg Tablet 1 tab PO DAILY sertraline [Zoloft] 50 mg Tablet 50 mg PO DAILY Referrals / Follow Up: Adarsh Gonzalez DO [Primary Care Provider] - Disposition Disposition (needs filled in before D/C Order can be placed): Home, Self Care
--- NOTE | 2022-05-12 10:33 | PCM.PN.OB ---
Subjective Subjective No overnight complaints. Nausea and vomiting resolved. Pain well controlled Objective Data Objective Data Vital Signs: Vital Signs Temp Pulse Resp BP Pulse Ox O2 Del Method 97.8 F 75 16 130/88 H 100 Room Air 05/12/22 08:00 05/12/22 08:00 05/12/22 08:00 05/12/22 08:00 05/12/22 08:00 05/12/22 08:00 Oxygen Delivery Method Room Air Weight: 152 lb 12.485 oz Body Mass Index (BMI) 24.6 Intake & Output: Intake and Output for Last 24 Hours 05/10/22 05/11/22 05/12/22 23:59 23:59 23:59 Intake Total 1687.5 / 1687.5 5446.66 / 5446.66 831.67 / 831.67 Output Total 1075 / 1075 1700 / 1700 Balance 1687.5 / 1687.5 4371.66 / 4371.66 -868.33 / -868.33 Lab / Micro Data Result Diagrams: 05/12/22 06:07 05/12/22 06:07 Labs: Laboratory Results - last 24 hr 05/11/22 10:25: Screen NEGATIVE, Baby's Blood Type O POSITIVE, Baby's MARISOL NEGATIVE 05/11/22 22:23: POC Glucose 76 05/12/22 06:07: Sodium 136, Potassium 3.9, Chloride 104, Carbon Dioxide 24.0, Anion Gap 8, BUN 7, Creatinine 0.64, Estim Creat Clear Calc 130.17, Est GFR (MDRD) Af Amer 150, Est GFR (MDRD) Non-Af 124, BUN/Creatinine Ratio 11.0, Glucose 80, Calcium 8.3 L, Total Bilirubin 0.30, AST 28, ALT 29, Alkaline Phosphatase 187 H, Lactate Dehydrogenase 209, Total Protein 5.5 L, Albumin 1.9 L, Globulin 3.6, Albumin/Globulin Ratio 0.5 L 05/12/22 06:07: WBC 10.5, RBC 2.95 L, Hgb 8.5 L, Hct 26.0 L, MCV 88.1, MCH 28.8, MCHC 32.7, RDW Std Deviation 41.3, RDW Coeff of Martin 13.1, Plt Count 138 L, MPV 12.7 H Physical Exam Const alert, oriented x3, no apparent distress, average body habitus, healthy appearing and well nourished HEENT normocephalic and moist oral mucous membranes Eyes PERRL Neck full ROM Resp normal respiratory effort, no retractions and no use of accessory muscles GI GI Narrative: Soft, nontender, bandage clean dry and intact Extremity normal to inspection and full ROM Neuro moves all extremities and no focal motor deficits Psych mental status grossly normal, affect normal, speech normal and activity/motor behavior normal Assessment & Plan (1) delivery delivered: PLAN: Postop day 1 status post primary section for breech at 37 weeks for preeclampsia without severe features. Breast-feeding. Pain well controlled. Denies headache, visual changes, chest pain, shortness of breath, nausea vomit, right upper quadrant pain. Labs stable. Blood pressure stable on no medications. 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
[2022-05-12] MEDS: Ibuprofen 600 MG Tablet PO ×3 (11:05→22:45)
[2022-05-12] MEDS: Enoxaparin 40 MG/0.4 ML Syringe SC (11:05)
[2022-05-12] MEDS: Senna/Docusate Sodium 1 Tablet PO (11:06)
[2022-05-12 14:30] VITALS: BP 124/76; PULSE 72; RESP 15; TEMP 36.1
[2022-05-12] MEDS: Sertraline 50 MG Tablet PO (19:59)
[2022-05-12 20:06] VITALS: BP 119/80; PULSE 91; RESP 18; TEMP 36.5; O2SAT 99
--- NOTE | 2022-05-12 21:47 | NURSING ---
Pt declined MMR and Flu vaccine.
[2022-05-13] MEDS: Acetaminophen 500 MG Tablet 1000 MG PO ×3 (01:41→14:19)
[2022-05-13 01:43] VITALS: BP 128/91; PULSE 90; RESP 18; TEMP 36.5; O2SAT 98
[2022-05-13] MEDS: Ibuprofen 600 MG Tablet PO ×2 (04:59→11:41)
[2022-05-13 08:30] VITALS: BP 127/83; PULSE 68; RESP 16; TEMP 36.3; O2SAT 99
--- NOTE | 2022-05-13 08:39 | PN.OBGYN_ITS ---
Subjective Subjective No overnight complaints. Denies headache, vision change, chest pain, shortness of breath, nausea vomit, right upper quadrant pain. Objective Data Objective Data Vital Signs: Vital Signs Temp Pulse Resp BP Pulse Ox O2 Del Method 97.7 F L 90 18 128/91 H 98 Room Air 05/13/22 01:43 05/13/22 01:43 05/13/22 01:43 05/13/22 01:43 05/13/22 01:43 05/13/22 01:43 Oxygen Delivery Method Room Air Weight: 152 lb 12.485 oz Body Mass Index (BMI) 24.6 Intake & Output: Intake and Output for Last 24 Hours 05/11/22 05/12/22 05/13/22 23:59 23:59 23:59 Intake Total 5446.66 / 5446.66 831.67 / 831.67 Output Total 1075 / 1075 1700 / 1700 Balance 4371.66 / 4371.66 -868.33 / -868.33 Lab / Micro Data Result Diagrams: 05/12/22 06:07 05/12/22 06:07 Physical Exam Const alert, oriented x3, no apparent distress, average body habitus, healthy appeari ng and well nourished HEENT normocephalic and moist oral mucous membranes Eyes PERRL Resp normal respiratory effort, no retractions and no use of accessory muscles GI GI Narrative: Soft, nontender, bandage clean dry and intact Extremity normal to inspection, full ROM and no clubbing, cyanosis or edema Neuro moves all extremities and no focal motor deficits Psych mental status grossly normal, affect normal, speech normal and activity/motor behavior normal Assessment & Plan (1) delivery delivered: PLAN: Postop day 2 status post primary section for breech and preeclampsia without severe features. Preeclampsia without severe features, patient remains asymptomatic and blood pressure with some outliers otherwise ov erall stable. Patient to take at home blood pressures and if above parameters will call and we will start medication. For blood pressure check this . Educated patient on signs and symptoms of preeclampsia with severe features. Patient states understanding. Breast-feeding. Pain well controlled. Okay to discharge home today
[2022-05-13] MEDS: Enoxaparin 40 MG/0.4 ML Syringe SC (11:41)
[2022-05-13 12:30] VITALS: BP 136/80; PULSE 68; RESP 16; TEMP 36.4; O2SAT 98
--- NOTE | 2022-05-13 15:13 | CASEMGMT ---
SW Note Referral Source: [facility] SW Referral Reason: History of anxiety/depression and THC use SW met with RN caring for the nb, Angela. Angela reports no concerns regarding . SW met with MOB and FOB in the room. NB was in the bassinet. MOB and FOB appeared to be appropriately bonding with the nb. MOB gave verba consent to speak to her in the presence of the fob. Mom: Demetri PNC: [place] and [place] Control: MOB reports she does not wish to take control as it makes her menstrual cycle harder. SW educated patient that she can become during the post period. Patient verbalized understanding. Baby: Ben Soto : 05/11/22 Apgars: 8/9 Weight: 5#15 ounces Swabber: Cheryl Cochran Breast feeding which patient reports is going good. Patient said that the nb is latching well. This is MOB's first child. Housing: MOB resides with the FOB (and nb) with FOB's grandparents and FOB's cousin Transportation: MOB reports that she has access to transportation and can drive when medically cleared. Supplies: MOB reports she has clothes, diapers, pack n play and carseat for the nb. Supports: MOB said that her family is a support and they reside in [place]. MOB said that the FOB's family reside in [place]. MOB said that the FOB and his grandparents will be supportive. Education Level: MOB reports she graduated high school. No learning issues. 2 year of college for biology but did not complete the program. 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 Patient plans to take 4 weeks of work and then return to work. MOB said that the FOB's mom will watch the nb when the MOB is working. Agency Involvement: MOB reports she receives [employer] insurance and WIC. MOB denied HMG, counseling, legal or CSB issues. FOB: Oscar Time Together: MOB and FOB have been together a little over a year Involved at : FOB stated that he plans to be involved with the nb. Employment: FOPolina is employed as an utility locater at [employer] and enjoys his job. He will be taking 3 weeks off work. FOB reports he has no other children. FOB denied MH/AOD or DV issues Maternal MH History: MOB reports that anxiety and depression run in my family. MOB said that she spoke to Dr. Rosalie Cochran about her symptoms and was prescribed Zoloft in her 7th or 8th month of . MOB said that she notices how Zoloft balances you out and plans to continue to take the Zoloft. Patient is prescribed Zoloft by her OB. Patient reports no current SI/HI. MOB reports no psych hospitalization. MOB reports no suicide attempt. MOB reports suicidal thoughts last at age 13 but no current. MOB is future oriented and appears bright and reactive during the assessment. MOB and FOB were educated on shaken baby syndrome, PPD and safe sleeping MOB reports no alcohol, tobacco or drug use. MOB was asked about THC use and MOB admitted to past THC use but reports it was 1 year ago (nb and MOB tox were negative). MOB said that she does not plan to resume marijuana usage. SW educated MOB and FOB that if they use THC to ensure that the nb is inside and away from marijuana smoke and that a sober individual is watching the nb. MOB and FOB verbalized understanding. Per RN MOB had no positive tox screens during thus CSB was not contacted (nb and MOB tox were negative at admission). SUZETTE provided MOB with [facility] resource list, PPD information and resources (on line and telephone) and resources. No other issues or concerns voiced. Plan: Home at discharge Nieves DAVIS
== END 2022-05-13 15:05 | disposition home or self-care (01) | DRG 788 ==
PROVIDERS: Admitting Provider Obstetrics & Gynecology; PCP Pediatrics; Visit Provider Obstetrics & Gynecology
PROC: (CPT 59514; principal; 2022-05-10 07:15)
DX: O32.1XX0 Maternal care for breech presentation, not applicable or unspecified (principal); O14.04 Mild to moderate pre-eclampsia, complicating childbirth; O99.824 Streptococcus B carrier state complicating childbirth; Z3A.37 37 weeks gestation of pregnancy; Z37.0 Single live birth
CPT/HCPCS: 59025; 59050; 80053; 80307; 82962; 83615; 85025; 85027; 85461; 86850; 86900; 86901; 99221; J7120; A4216; G0378; J2405; J2790; J3490

== ENCOUNTER → 2022-05-22 | Outpatient (CLI) | payer BC, MEDICAID, SELFPAY | END | disposition home or self-care (01) | PROVIDERS: PCP Pediatrics; Visit Provider Obstetrics & Gynecology | DX: R30.0 Dysuria (principal) | CPT/HCPCS: 87086 ==